=== PATIENT | male | born 1940 | race Caucasian/White ===

== ENCOUNTER 2017-12-18 12:08 | Observation (INO) | payer MEDICARE ==
[~2017-12-18] VITALS: Ht 170.2 cm; Wt 138.9 kg
[~2017-12-18 12:08] MED LIST: ANUSHCS PR; BEE550CA PO; CETI-101 PO; CHOL200013 PO; CYAN25002 SL; DONE10TA36 PO; EZET1TAB21 PO; FURO40TA7 PO; GLYB1TAB3 PO; HYDR-3977 PO; LIRA0.6P SQ; LOSA50TA2 PO; OXYM30SP NS; POTA20TA82 PO; VITA400C73 PO
[2017-12-18] MEDS ORDERED: ASPIRIN 325 MG TABLET ONE (12:41)
[2017-12-18] MEDS ORDERED: NITROGLYCERIN 1GM/1 INCH PACKET TD ONE (12:41)
[2017-12-18] MEDS ORDERED: IPRATROPIUM/ALBUTEROL SULFATE 3 ML SOLUTION IH ONE (12:48)
[2017-12-18 13:06] LABS: BASOPHILS % (AUTO) 1.2 % (0.0-5.0); EOSINOPHILS % (AUTO) 6.7 % (0.0-8.0); LYMPHOCYTES % (AUTO) 24.2 % (21.0-51.0); MEAN CORPUSCULAR HGB CONC 32.8 g/dL (32.0-36.0); MEAN CORPUSCULAR VOLUME 97.6 fL (79-99); MONOCYTES % (AUTO) 13.3 % (3.0-13.0); NEUTROPHILS % (AUTO) 54.6 % (40.0-77.0); PLATELET COUNT (AUTO) 167 K/uL (130-400); RED CELL DISTRIBUTION WIDTH 14.4 % (11.0-15.5); WHITE BLOOD COUNT (AUTO) 5.6 K/uL (4.8-10.8)
[2017-12-18 13:16] LABS: CREATININE 1.7 mg/dL (0.5-1.5); POTASSIUM 5.7 mmol/L (3.5-5.1)
[2017-12-18 13:24] LABS: INR 1.08 (0.85-1.15); PARTIAL THROMBOPLASTIN TIME 23.3 SEC (26.3-35.5); PROTHROMBIN TIME 11.3 SEC (9.6-11.6)
[2017-12-18 13:30] LABS: ALBUMIN 2.8 g/dL (3.5-5.0); BILIRUBIN,TOTAL 0.4 mg/dL (0.2-1.0); CREATINE KINASE MB 2.2 ng/mL (0.5-3.6); TOTAL PROTEIN, SERUM 6.9 g/dL (6.0-8.3)
[2017-12-18 13:31] LABS: B-TYPE NATRIURETIC PEPTIDE 830 pg/mL (0-100)
[2017-12-18] MEDS ORDERED: FUROSEMIDE 10 MG/ML 4ML VIAL ONE (13:53)
[2017-12-18 15:01] LABS: APPEARANCE,URINE Clear (CLEAR); BILIRUBIN,URINE Negative (NEGATIVE); COLOR,URINE Yellow (YELLOW); GLUCOSE, URINE (UA) Negative (NEGATIVE); KETONES,URINE Negative (NEGATIVE); LEUKOCYTE ESTERASE ,URINE Negative (NEGATIVE); NITRATE,URINE Negative (NEGATIVE); OCCULT BLOOD,URINE Negative (NEGATIVE); PROTEIN,URINE POS 1+ (NEGATIVE); UROBILINOGEN,URINE 0.2 mg/dL (0.2-1.0)
[2017-12-18 15:12] LABS: BACTERIA,URINE Rare /HPF (None Seen); HYALINE CASTS, URINE 0-1 /LPF (0-1 /LPF); MUCUS,URINE Few LPF (None Seen); RBC,URINE None Seen /HPF (0-1); SQUAMOUS EPITHELIAL CELL,UR 0-2 /HPF (0-2); TRANSITIONAL EPI CELLS,URINE Rare /HPF (None Seen); WBC,URINE None Seen /HPF (0-1)
[2017-12-18 20:38] VITALS: BP 146/75
[2017-12-18] MEDS ORDERED: POTASSIUM CHLORIDE 20MEQ/100ML 100 ML IV PRN (23:00)
[2017-12-18] MEDS ORDERED: DEXTROSE 50%-WATER 50 ML DISP.SYRIN IV PRN (23:00)
[2017-12-18] MEDS ORDERED: POTASSIUM CHLORIDE 10% ELIXIR 20 MEQ/15 ML UDCUP PO PRN (23:00)
[2017-12-18] MEDS ORDERED: LIDOCAINE HCL-MPF 1% 2ML VIAL IVP PRN (23:00)
[2017-12-18] MEDS ORDERED: METHYLPREDNISOLONE SOD SUCC 125MG/2ML VIAL IVP SCH (23:00)
[2017-12-18] MEDS: FUROSEMIDE 10 MG/ML 4ML VIAL IV SCH (23:00)
[2017-12-18] MEDS ORDERED: IPRATROPIUM/ALBUTEROL SULFATE 3 ML SOLUTION IH PRN (23:00)
[2017-12-18] MEDS ORDERED: POTASSIUM CHLORIDE 20 MEQ ERTAB PO PRN (23:00)
[2017-12-18] MEDS ORDERED: GLUCAGON 1MG KIT 1 MG ML IM PRN (23:00)
[2017-12-18 23:29] VITALS: BP 147/77
[2017-12-19] MEDS: FUROSEMIDE 10 MG/ML 4ML VIAL IV SCH (00:01)
[2017-12-19] MEDS: AZITHROMYCIN 500MG+NS 250ML 250 ML IV SCH ×2 (00:01→23:00)
[2017-12-19 03:49] VITALS: BP 155/80
[2017-12-19 05:48] LABS: HEMATOCRIT 41.3 % (42-54); MEAN CORPUSCULAR HGB CONC 32.7 g/dL (32.0-36.0); MEAN CORPUSCULAR VOLUME 97.7 fL (79-99); NUCLEATED RED BLOOD CELLS 0.1 % (0.0-0.19); PLATELET COUNT (AUTO) 162 K/uL (130-400); RED BLOOD CELL COUNT(AUTO) 4.23 MIL/uL (4.50-6.20); RED CELL DISTRIBUTION WIDTH 14.4 % (11.0-15.5); WHITE BLOOD COUNT (AUTO) 5.2 K/uL (4.8-10.8)
[2017-12-19 05:51] LABS: ALBUMIN 2.9 g/dL (3.5-5.0); BILIRUBIN,TOTAL 0.4 mg/dL (0.2-1.0); CREATININE 1.7 mg/dL (0.5-1.5); POTASSIUM 4.7 mmol/L (3.5-5.1); TOTAL PROTEIN, SERUM 6.6 g/dL (6.0-8.3)
[2017-12-19] MEDS: INSULIN HUMULIN R 100 UNIT/ML 3ML SQ SCH ×4 (06:50→20:42)
[2017-12-19 07:52] VITALS: BP 118/68
[2017-12-19] MEDS ORDERED: FUROSEMIDE 10 MG/ML 4ML VIAL IV SCH (09:00)
[2017-12-19] MEDS ORDERED: PREDNISONE 20 MG TABLET PO SCH (09:00)
[2017-12-19] MEDS ORDERED: CEFTRIAXONE SODIUM 1 GM IV SCH (09:00)
[2017-12-19 11:27] VITALS: BP 128/65
[2017-12-19 15:31] VITALS: BP 147/93
[2017-12-19 20:00] VITALS: BP 137/79
[2017-12-19 23:51] VITALS: BP 128/66
[2017-12-20 04:00] VITALS: BP 145/61
[2017-12-20 05:16] LABS: HEMATOCRIT 41.6 % (42-54); MEAN CORPUSCULAR HEMOGLOBIN 32.4 pg (27.0-33.0); MEAN CORPUSCULAR HGB CONC 33.4 g/dL (32.0-36.0); MEAN CORPUSCULAR VOLUME 97.1 fL (79-99); PLATELET COUNT (AUTO) 189 K/uL (130-400); RED BLOOD CELL COUNT(AUTO) 4.29 MIL/uL (4.50-6.20); RED CELL DISTRIBUTION WIDTH 14.2 % (11.0-15.5); WHITE BLOOD COUNT (AUTO) 7.2 K/uL (4.8-10.8)
[2017-12-20 05:20] LABS: CREATININE 1.8 mg/dL (0.5-1.5)
[2017-12-20] MEDS: INSULIN HUMULIN R 100 UNIT/ML 3ML SQ SCH (05:40)
== END 2017-12-20 08:40 | disposition home or self-care (01) ==
LOC: EDH 12:08 → EDHIP 14:10 → 4CH 20:31
PROVIDERS: ADMIT Internal Medicine; ATTEND Internal Medicine
DX: J44.1 Chronic obstructive pulmonary disease with (acute) exacerbation (principal); I11.0 Hypertensive heart disease with heart failure; I50.32 Chronic diastolic (congestive) heart failure; E78.5 Hyperlipidemia, unspecified; E66.01 Morbid (severe) obesity due to excess calories; E11.65 Type 2 diabetes mellitus with hyperglycemia; J96.90 Respiratory failure, unspecified, unspecified whether with hypoxia or hypercapnia
CPT/HCPCS: 36415 ×3; 71045; 76770; 80048; 80053 ×2; 81001; 82550; 82553; 82948 ×6; 83880; 84484; 85025; 85027 ×2; 85610; 85730; 93005; 94664; 96365; 96366; 96372; 96375; 99285; G0378 ×42; J0456 ×2; J0696; J1815 ×2; J1940 ×3; J2930

== ENCOUNTER 2017-12-30 17:56 | Inpatient (IN) | payer BC, MEDICARE ==
[~2017-12-30] VITALS: Ht 170.2 cm; Wt 133.5 kg
[~2017-12-30 17:56] MED LIST changes: -ANUSHCS PR; -BEE550CA PO; -CETI-101 PO; -CHOL200013 PO; -CYAN25002 SL; -DONE10TA36 PO; +ETOMIDATE 2 MG/ML 10 ML VIAL IVP ONE; -EZET1TAB21 PO; -FURO40TA7 PO; -GLYB1TAB3 PO; -HYDR-3977 PO; -LIRA0.6P SQ; -LOSA50TA2 PO; -OXYM30SP NS; -POTA20TA82 PO; +SUCCINYLCHOLINE CHLORIDE 20 MG/ML 10 ML VIAL IVP ONE; -VITA400C73 PO
[2017-12-30 18:31] LABS: BASOPHILS % (AUTO) 0.9 % (0.0-5.0); EOSINOPHILS % (AUTO) 0.3 % (0.0-8.0); HEMATOCRIT 42.3 % (42-54); LYMPHOCYTES % (AUTO) 14.6 % (21.0-51.0); MEAN CORPUSCULAR HEMOGLOBIN 31.4 pg (27.0-33.0); MEAN CORPUSCULAR HGB CONC 32.8 g/dL (32.0-36.0); MEAN CORPUSCULAR VOLUME 95.7 fL (79-99); MONOCYTES % (AUTO) 11.3 % (3.0-13.0); NEUTROPHILS % (AUTO) 72.9 % (40.0-77.0); NUCLEATED RED BLOOD CELLS 0.1 % (0.0-0.19); PLATELET COUNT (AUTO) 150 K/uL (130-400); RED BLOOD CELL COUNT(AUTO) 4.42 MIL/uL (4.50-6.20); RED CELL DISTRIBUTION WIDTH 14.6 % (11.0-15.5); WHITE BLOOD COUNT (AUTO) 5.4 K/uL (4.8-10.8)
[2017-12-30 18:43] LABS: CREATININE 2.3 mg/dL (0.5-1.5); INR 1.11 (0.85-1.15); PARTIAL THROMBOPLASTIN TIME 22.9 SEC (26.3-35.5); POTASSIUM 4.7 mmol/L (3.5-5.1); PROTHROMBIN TIME 11.6 SEC (9.6-11.6)
[2017-12-30 18:57] LABS: ALBUMIN 3.2 g/dL (3.5-5.0); BILIRUBIN,TOTAL 0.2 mg/dL (0.2-1.0); CREATINE KINASE MB 3.4 ng/mL (0.5-3.6); TOTAL PROTEIN, SERUM 6.9 g/dL (6.0-8.3)
[2017-12-30 19:09] LABS: B-TYPE NATRIURETIC PEPTIDE 1060 pg/mL (0-100)
[2017-12-30] MEDS ORDERED: SODIUM CHLORIDE 0.9% 500ML 500 ML IV ONE (21:29)
[2017-12-30] MEDS ORDERED: FUROSEMIDE 10 MG/ML 4ML VIAL ONE (21:48)
[2017-12-30] MEDS ORDERED: FUROSEMIDE 10 MG/ML 2ML VIAL ONE (21:49)
[2017-12-30 23:45] VITALS: BP 136/79
[2017-12-31 01:57] LABS: CREATINE KINASE MB 3.5 ng/mL (0.5-3.6); TROPONIN I 0.1 ng/mL (0.00-0.06)
[2017-12-31] MEDS ORDERED: ALPRAZOLAM 1 MG TAB PO PRN (02:00)
[2017-12-31] MEDS ORDERED: HYDROCODONE/ACETAMINOPHEN 10/325 MG TAB PO PRN (02:00)
[2017-12-31] MEDS ORDERED: ATOR40TA71 PO (02:11)
[2017-12-31] MEDS ORDERED: POTA20TA82 PO (02:11)
[2017-12-31] MEDS ORDERED: CYAN25002 SL (02:11)
[2017-12-31] MEDS ORDERED: PRED20TA3 PO (02:11)
[2017-12-31] MEDS ORDERED: DONE10TA43 PO (02:11)
[2017-12-31] MEDS ORDERED: HYDR-4068 PO (02:11)
[2017-12-31] MEDS ORDERED: ERGO500014 PO (02:11)
[2017-12-31] MEDS ORDERED: MEMA10TA20 PO (02:11)
[2017-12-31] MEDS ORDERED: DIVA125T2 PO (02:11)
[2017-12-31] MEDS ORDERED: ALPR1TAB7 PO (02:11)
[2017-12-31] MEDS ORDERED: MULT-1192 PO (02:11)
[2017-12-31] MEDS ORDERED: PRIM50TA29 PO (02:11)
[2017-12-31] MEDS ORDERED: LOSA100T29 PO (02:11)
[2017-12-31] MEDS ORDERED: GLYB-228 PO (02:11)
[2017-12-31 03:50] VITALS: BP 112/58
[2017-12-31] MEDS ORDERED: FUROSEMIDE 10 MG/ML 10ML VIAL IVP SCH (07:00)
[2017-12-31 07:07] LABS: CREATINE KINASE MB 3.2 ng/mL (0.5-3.6); TROPONIN I 0.08 ng/mL (0.00-0.06)
[2017-12-31 08:00] VITALS: BP 128/60
[2017-12-31] MEDS ORDERED: GLYBURIDE/METFORMIN HCL 5/500MG TABLET PO SCH (08:00)
[2017-12-31] MEDS: CYANOCOBALAMIN (VITAMIN B-12) 1,000 MCG TABLET PO SCH (10:50)
[2017-12-31] MEDS: POTASSIUM CHLORIDE 20 MEQ ERTAB PO SCH (10:51)
[2017-12-31] MEDS: LOSARTAN 100 MG TABLET PO SCH (10:51)
[2017-12-31] MEDS: ERGOCALCIFEROL (VITAMIN D2) 50,000 UNIT CAPSULE PO SCH (10:51)
[2017-12-31] MEDS: MEMANTINE HCL 5 MG TABLET PO SCH ×2 (10:51→20:35)
[2017-12-31] MEDS: MULTIVITAMIN TABLET PO SCH (10:51)
[2017-12-31] MEDS: DIVALPROEX SODIUM 250 MG TABLET.DR PO SCH ×2 (10:51→20:35)
[2017-12-31] MEDS: PRIMIDONE 50 MG TAB PO SCH ×2 (10:54→16:59)
[2017-12-31] MEDS: PREDNISONE 20 MG TABLET PO SCH (10:54)
[2017-12-31 12:00] VITALS: BP 159/70
[2017-12-31 15:44] VITALS: BP 161/87
[2017-12-31 19:15] VITALS: BP 121/67
[2017-12-31] MEDS: DONEPEZIL HCL 5 MG TAB PO SCH (20:35)
[2017-12-31] MEDS: ATORVASTATIN CALCIUM 40 MG TABLET PO SCH (20:35)
[2017-12-31 23:07] VITALS: BP 148/67
[2018-01-01] VITALS (17 sets, daily range): BP systolic 112–190; BP diastolic 58–105
[2018-01-01 06:18] LABS: HEMATOCRIT 40.6 % (42-54); MEAN CORPUSCULAR HEMOGLOBIN 31.9 pg (27.0-33.0); MEAN CORPUSCULAR HGB CONC 32.6 g/dL (32.0-36.0); MEAN CORPUSCULAR VOLUME 97.8 fL (79-99); NUCLEATED RED BLOOD CELLS 0.1 % (0.0-0.19); PLATELET COUNT (AUTO) 129 K/uL (130-400); RED BLOOD CELL COUNT(AUTO) 4.15 MIL/uL (4.50-6.20); RED CELL DISTRIBUTION WIDTH 15.1 % (11.0-15.5); WHITE BLOOD COUNT (AUTO) 7.4 K/uL (4.8-10.8)
[2018-01-01 06:26] LABS: APPEARANCE,URINE Clear (CLEAR); BILIRUBIN,URINE Negative (NEGATIVE); COLOR,URINE Yellow (YELLOW); GLUCOSE, URINE (UA) Negative (NEGATIVE); KETONES,URINE Negative (NEGATIVE); LEUKOCYTE ESTERASE ,URINE Negative (NEGATIVE); NITRATE,URINE Negative (NEGATIVE); OCCULT BLOOD,URINE Negative (NEGATIVE); PROTEIN,URINE POS 2+ (NEGATIVE); UROBILINOGEN,URINE 0.2 mg/dL (0.2-1.0)
[2018-01-01 06:32] LABS: BACTERIA,URINE Rare /HPF (None Seen); RBC,URINE 0-1 /HPF (0-1); SQUAMOUS EPITHELIAL CELL,UR Rare /HPF (0-2)
[2018-01-01 06:33] LABS: ALBUMIN 3.1 g/dL (3.5-5.0); BILIRUBIN,TOTAL 0.3 mg/dL (0.2-1.0); CREATININE 2.1 mg/dL (0.5-1.5); MAGNESIUM 2.2 mg/dL (1.80-2.40); PHOSPHORUS 5.8 mg/dL (2.5-4.9); POTASSIUM 4.1 mmol/L (3.5-5.1); TOTAL PROTEIN, SERUM 6.7 g/dL (6.0-8.3); URIC ACID 9.7 mg/dL (2.6-7.2)
[2018-01-01] MEDS: FOLIC ACID/VITAMIN B COMP W-C 1 MG CAPSULE PO SCH (12:39)
[2018-01-01] MEDS: MEMANTINE HCL 5 MG TABLET PO SCH ×2 (12:40→21:00)
[2018-01-01] MEDS: LOSARTAN 100 MG TABLET PO SCH (12:40)
[2018-01-01] MEDS: POTASSIUM CHLORIDE 20 MEQ ERTAB PO SCH (12:40)
[2018-01-01] MEDS: PREDNISONE 20 MG TABLET PO SCH (12:40)
[2018-01-01] MEDS: CYANOCOBALAMIN (VITAMIN B-12) 1,000 MCG TABLET PO SCH (12:41)
[2018-01-01] MEDS: DIVALPROEX SODIUM 250 MG TABLET.DR PO SCH ×2 (12:41→21:00)
[2018-01-01] MEDS: PRIMIDONE 50 MG TAB PO SCH ×2 (12:41→16:20)
[2018-01-01] MEDS: MULTIVITAMIN TABLET PO SCH (12:42)
[2018-01-01 14:41] LABS: ABG BASE EXCESS 1.2 mmol/L (-2.0-3.0); ABG HCO3 33.5 mmol/L (21.0-28.0); ABG PCO2 98 mmHg (35-48)
[2018-01-01 16:52] LABS: ABG HCO3 39.7 mmol/L (21.0-28.0); ABG PCO2 130 mmHg (35-48)
[2018-01-01] MEDS ORDERED: NOREPINEPHRINE 4MG/NS 250ML 250 ML IV SCH (17:30)
[2018-01-01] MEDS: IPRATROPIUM/ALBUTEROL SULFATE 3 ML SOLUTION IH SCH ×2 (18:00→23:12)
[2018-01-01] MEDS ORDERED: PROPOFOL 1000 MG/100 ML 100 ML IV ONE (18:09)
[2018-01-01 18:57] LABS: ABG BASE EXCESS 2.5 mmol/L (-2.0-3.0); ABG HCO3 28.6 mmol/L (21.0-28.0); ABG OXYGEN SATURATION 94.9 % (95.0-99.0); ABG PCO2 50 mmHg (35-48)
[2018-01-01] MEDS: DOXYCYCLINE 100MG+NS 250ML 250 ML IV SCH (19:51)
[2018-01-01] MEDS ORDERED: SODIUM CHLORIDE 0.9% 500ML 500 ML IV SCH (21:00)
[2018-01-01] MEDS ORDERED: SODIUM CHLORIDE 0.9% 1000ML 1,000 ML IV ONE (21:06)
[2018-01-01] MEDS ORDERED: SODIUM CHLORIDE 0.9% 500ML 500 ML IV ONE (21:06)
[2018-01-01] MEDS: SODIUM CHLORIDE 0.9% 1000ML 1,000 ML IV SCH (22:17)
[2018-01-01] MEDS: ATORVASTATIN CALCIUM 40 MG TABLET PO SCH (22:48)
[2018-01-01] MEDS: METHYLPREDNISOLONE SOD SUCC 40MG/ML 1ML IVP SCH (22:48)
[2018-01-01] MEDS: FAMOTIDINE/PF 20 MG/2 ML VIAL IV SCH (22:48)
[2018-01-01] MEDS: DONEPEZIL HCL 5 MG TAB PO SCH (22:48)
[2018-01-02] VITALS (24 sets, daily range): BP systolic 135–181; BP diastolic 64–102
[2018-01-02 03:58] LABS: BASOPHILS % (AUTO) 0.4 % (0.0-5.0); HEMATOCRIT 37.9 % (42-54); LYMPHOCYTES % (AUTO) 7.3 % (21.0-51.0); MEAN CORPUSCULAR HEMOGLOBIN 31.7 pg (27.0-33.0); MEAN CORPUSCULAR HGB CONC 33.1 g/dL (32.0-36.0); MEAN CORPUSCULAR VOLUME 95.9 fL (79-99); MONOCYTES % (AUTO) 8.4 % (3.0-13.0); NEUTROPHILS % (AUTO) 83.9 % (40.0-77.0); PLATELET COUNT (AUTO) 90 K/uL (130-400); RED BLOOD CELL COUNT(AUTO) 3.95 MIL/uL (4.50-6.20); RED CELL DISTRIBUTION WIDTH 14.6 % (11.0-15.5); WHITE BLOOD COUNT (AUTO) 6.8 K/uL (4.8-10.8)
[2018-01-02 04:20] LABS: CREATININE 1.9 mg/dL (0.5-1.5); POTASSIUM 4.1 mmol/L (3.5-5.1)
[2018-01-02] MEDS: METHYLPREDNISOLONE SOD SUCC 40MG/ML 1ML IVP SCH ×4 (04:59→21:00)
[2018-01-02] MEDS: IPRATROPIUM/ALBUTEROL SULFATE 3 ML SOLUTION IH SCH ×4 (06:00→23:22)
[2018-01-02] MEDS: DOXYCYCLINE 100MG+NS 250ML 250 ML IV SCH ×2 (08:39→18:11)
[2018-01-02] MEDS: FAMOTIDINE/PF 20 MG/2 ML VIAL IV SCH (08:40)
[2018-01-02] MEDS: CYANOCOBALAMIN (VITAMIN B-12) 1,000 MCG TABLET PO SCH (08:41)
[2018-01-02] MEDS: MULTIVITAMIN TABLET PO SCH (08:41)
[2018-01-02] MEDS: FOLIC ACID/VITAMIN B COMP W-C 1 MG CAPSULE PO SCH (08:41)
[2018-01-02] MEDS: DIVALPROEX SODIUM 250 MG TABLET.DR PO SCH ×2 (08:41→21:11)
[2018-01-02] MEDS: PRIMIDONE 50 MG TAB PO SCH ×2 (08:41→15:50)
[2018-01-02] MEDS: MEMANTINE HCL 5 MG TABLET PO SCH ×2 (08:41→21:10)
[2018-01-02] MEDS: PREDNISONE 20 MG TABLET PO SCH (08:41)
[2018-01-02] MEDS: PROPOFOL 1000 MG/100 ML IV PRN ×5 (08:45→18:11)
[2018-01-02 09:29] LABS: ABG BASE EXCESS 7.7 mmol/L (-2.0-3.0); ABG HCO3 30.8 mmol/L (21.0-28.0); ABG OXYGEN SATURATION 97.7 % (95.0-99.0); ABG PCO2 38 mmHg (35-48)
[2018-01-02] MEDS: SODIUM CHLORIDE 0.9% 1000ML 1,000 ML IV SCH (11:26)
[2018-01-02] MEDS: FUROSEMIDE 10 MG/ML 10ML VIAL IVP SCH ×2 (13:27→21:11)
[2018-01-02] MEDS: DONEPEZIL HCL 5 MG TAB PO SCH (21:11)
[2018-01-02] MEDS: ATORVASTATIN CALCIUM 40 MG TABLET PO SCH (21:11)
[2018-01-02] MEDS ORDERED: AMLODIPINE BESYLATE 5 MG TAB PO ONE (21:45)
[2018-01-03] VITALS (26 sets, daily range): BP systolic 81–174; BP diastolic 41–101
[2018-01-03] MEDS: METHYLPREDNISOLONE SOD SUCC 40MG/ML 1ML IVP SCH ×3 (03:16→20:20)
[2018-01-03 04:59] LABS: HEMATOCRIT 38.3 % (42-54); MEAN CORPUSCULAR HGB CONC 32.9 g/dL (32.0-36.0); MEAN CORPUSCULAR VOLUME 94.3 fL (79-99); PLATELET COUNT (AUTO) 119 K/uL (130-400); RED BLOOD CELL COUNT(AUTO) 4.07 MIL/uL (4.50-6.20); RED CELL DISTRIBUTION WIDTH 14.2 % (11.0-15.5); WHITE BLOOD COUNT (AUTO) 8.3 K/uL (4.8-10.8)
[2018-01-03 05:17] LABS: ALBUMIN 2.4 g/dL (3.5-5.0); B-TYPE NATRIURETIC PEPTIDE 1050 pg/mL (0-100); BILIRUBIN,TOTAL 0.4 mg/dL (0.2-1.0); CREATININE 1.8 mg/dL (0.5-1.5); MAGNESIUM 1.9 mg/dL (1.80-2.40); PHOSPHORUS 3.7 mg/dL (2.5-4.9); POTASSIUM 3.4 mmol/L (3.5-5.1); TOTAL PROTEIN, SERUM 5.5 g/dL (6.0-8.3)
[2018-01-03] MEDS: DOXYCYCLINE 100MG+NS 250ML 250 ML IV SCH ×2 (06:20→19:39)
[2018-01-03] MEDS: IPRATROPIUM/ALBUTEROL SULFATE 3 ML SOLUTION IH SCH ×3 (06:58→18:48)
[2018-01-03] MEDS: PROPOFOL 1000 MG/100 ML IV PRN ×6 (07:59→23:30)
[2018-01-03] MEDS: PREDNISONE 20 MG TABLET PO SCH (08:00)
[2018-01-03] MEDS: MULTIVITAMIN TABLET PO SCH (08:38)
[2018-01-03] MEDS: PRIMIDONE 50 MG TAB PO SCH ×2 (08:38→16:23)
[2018-01-03] MEDS: FAMOTIDINE/PF 20 MG/2 ML VIAL IV SCH (08:38)
[2018-01-03] MEDS: FUROSEMIDE 10 MG/ML 10ML VIAL IVP SCH (08:38)
[2018-01-03] MEDS: MEMANTINE HCL 5 MG TABLET PO SCH ×2 (08:38→20:20)
[2018-01-03] MEDS: FOLIC ACID/VITAMIN B COMP W-C 1 MG CAPSULE PO SCH (08:38)
[2018-01-03] MEDS: CYANOCOBALAMIN (VITAMIN B-12) 1,000 MCG TABLET PO SCH (08:38)
[2018-01-03] MEDS: DIVALPROEX SODIUM 250 MG TABLET.DR PO SCH ×2 (08:39→20:21)
[2018-01-03 09:25] LABS: ABG BASE EXCESS 8.6 mmol/L (-2.0-3.0); ABG HCO3 34.3 mmol/L (21.0-28.0); ABG OXYGEN SATURATION 98.3 % (95.0-99.0); ABG PCO2 51 mmHg (35-48)
[2018-01-03] MEDS: AMLODIPINE BESYLATE 5 MG TAB PO SCH (11:57)
[2018-01-03] MEDS: DONEPEZIL HCL 5 MG TAB PO SCH (20:20)
[2018-01-03] MEDS: ATORVASTATIN CALCIUM 40 MG TABLET PO SCH (20:20)
[2018-01-04] VITALS (26 sets, daily range): BP systolic 88–160; BP diastolic 49–92
[2018-01-04] MEDS: IPRATROPIUM/ALBUTEROL SULFATE 3 ML SOLUTION IH SCH ×5 (00:33→23:31)
[2018-01-04] MEDS: PROPOFOL 1000 MG/100 ML IV PRN ×5 (03:19→20:21)
[2018-01-04 04:08] LABS: HEMATOCRIT 37.2 % (42-54); MEAN CORPUSCULAR HGB CONC 34.1 g/dL (32.0-36.0); MEAN CORPUSCULAR VOLUME 94.1 fL (79-99); PLATELET COUNT (AUTO) 110 K/uL (130-400); RED BLOOD CELL COUNT(AUTO) 3.95 MIL/uL (4.50-6.20); RED CELL DISTRIBUTION WIDTH 14.9 % (11.0-15.5); WHITE BLOOD COUNT (AUTO) 7.7 K/uL (4.8-10.8)
[2018-01-04 04:14] LABS: CREATININE 1.5 mg/dL (0.5-1.5); PHOSPHORUS 4.5 mg/dL (2.5-4.9); POTASSIUM 4.4 mmol/L (3.5-5.1)
[2018-01-04 05:59] LABS: ABG HCO3 33.5 mmol/L (21.0-28.0); ABG OXYGEN SATURATION 96.3 % (95.0-99.0); ABG PCO2 49 mmHg (35-48)
[2018-01-04] MEDS: MEMANTINE HCL 5 MG TABLET PO SCH ×2 (09:00→20:14)
[2018-01-04] MEDS: DOXYCYCLINE 100MG+NS 250ML 250 ML IV SCH ×2 (09:02→20:14)
[2018-01-04] MEDS: MULTIVITAMIN TABLET PO SCH (09:03)
[2018-01-04] MEDS: FAMOTIDINE/PF 20 MG/2 ML VIAL IV SCH (09:03)
[2018-01-04] MEDS: PREDNISONE 20 MG TABLET PO SCH (09:03)
[2018-01-04] MEDS: CYANOCOBALAMIN (VITAMIN B-12) 1,000 MCG TABLET PO SCH (09:03)
[2018-01-04] MEDS: DIVALPROEX SODIUM 250 MG TABLET.DR PO SCH ×2 (09:03→20:15)
[2018-01-04] MEDS: METHYLPREDNISOLONE SOD SUCC 40MG/ML 1ML IVP SCH ×2 (09:03→20:14)
[2018-01-04] MEDS: FOLIC ACID/VITAMIN B COMP W-C 1 MG CAPSULE PO SCH (09:03)
[2018-01-04] MEDS: PRIMIDONE 50 MG TAB PO SCH ×2 (09:04→17:23)
[2018-01-04] MEDS: AMLODIPINE BESYLATE 5 MG TAB PO SCH (09:04)
[2018-01-04 10:50] LABS: ABG BASE EXCESS 6.1 mmol/L (-2.0-3.0); ABG HCO3 31.2 mmol/L (21.0-28.0); ABG PCO2 46 mmHg (35-48)
[2018-01-04] MEDS ORDERED: FUROSEMIDE 10 MG/ML 4ML VIAL IV SCH (12:30)
[2018-01-04] MEDS: FUROSEMIDE 40 MG TABLET PO SCH (17:00)
[2018-01-04] MEDS: ATORVASTATIN CALCIUM 40 MG TABLET PO SCH (20:14)
[2018-01-04] MEDS: DONEPEZIL HCL 5 MG TAB PO SCH (20:15)
[2018-01-05] VITALS (24 sets, daily range): BP systolic 103–166; BP diastolic 47–92
[2018-01-05] MEDS: PROPOFOL 1000 MG/100 ML IV PRN (01:06)
[2018-01-05 04:17] LABS: RED BLOOD CELL COUNT(AUTO) 4.01 MIL/uL (4.50-6.20); WHITE BLOOD COUNT (AUTO) 7.1 K/uL (4.8-10.8)
[2018-01-05 04:18] LABS: HEMATOCRIT 37.7 % (42-54); MEAN CORPUSCULAR HEMOGLOBIN 30.7 pg (27.0-33.0); MEAN CORPUSCULAR HGB CONC 32.6 g/dL (32.0-36.0); PLATELET COUNT (AUTO) 92 K/uL (130-400); RED CELL DISTRIBUTION WIDTH 14.6 % (11.0-15.5)
[2018-01-05 04:30] LABS: CREATININE 1.3 mg/dL (0.5-1.5); MAGNESIUM 2.1 mg/dL (1.80-2.40); PHOSPHORUS 3.8 mg/dL (2.5-4.9)
[2018-01-05 05:10] LABS: ABG BASE EXCESS 10.8 mmol/L (-2.0-3.0); ABG HCO3 37.5 mmol/L (21.0-28.0); ABG OXYGEN SATURATION 96.3 % (95.0-99.0); ABG PCO2 58 mmHg (35-48)
[2018-01-05] MEDS: IPRATROPIUM/ALBUTEROL SULFATE 3 ML SOLUTION IH SCH ×3 (06:17→18:48)
[2018-01-05] MEDS ORDERED: MAGNESIUM 2GM PREMIX 50ML 50 ML IV SCH (07:30)
[2018-01-05] MEDS: DOXYCYCLINE 100MG+NS 250ML 250 ML IV SCH ×2 (08:16→20:04)
[2018-01-05] MEDS: CYANOCOBALAMIN (VITAMIN B-12) 1,000 MCG TABLET PO SCH (08:21)
[2018-01-05] MEDS: METHYLPREDNISOLONE SOD SUCC 40MG/ML 1ML IVP SCH ×2 (08:21→20:04)
[2018-01-05] MEDS: FUROSEMIDE 40 MG TABLET PO SCH ×2 (08:21→17:00)
[2018-01-05] MEDS: AMLODIPINE BESYLATE 5 MG TAB PO SCH (08:21)
[2018-01-05] MEDS: DIVALPROEX SODIUM 250 MG TABLET.DR PO SCH ×2 (08:22→20:16)
[2018-01-05] MEDS: FOLIC ACID/VITAMIN B COMP W-C 1 MG CAPSULE PO SCH (08:22)
[2018-01-05] MEDS: FAMOTIDINE/PF 20 MG/2 ML VIAL IV SCH (08:22)
[2018-01-05] MEDS: PREDNISONE 20 MG TABLET PO SCH (08:23)
[2018-01-05] MEDS: MULTIVITAMIN TABLET PO SCH (08:23)
[2018-01-05] MEDS: MEMANTINE HCL 5 MG TABLET PO SCH ×2 (08:24→20:16)
[2018-01-05] MEDS: PRIMIDONE 50 MG TAB PO SCH ×2 (08:24→16:30)
[2018-01-05 10:24] LABS: ABG BASE EXCESS 6.6 mmol/L (-2.0-3.0); ABG OXYGEN SATURATION 94.8 % (95.0-99.0); ABG PCO2 54 mmHg (35-48)
[2018-01-05] MEDS ORDERED: LABETALOL HCL 5 MG/ML 20ML VIAL IV PRN (17:15)
[2018-01-05] MEDS: ATORVASTATIN CALCIUM 40 MG TABLET PO SCH (20:16)
[2018-01-05] MEDS: DONEPEZIL HCL 5 MG TAB PO SCH (20:16)
[2018-01-06] VITALS (25 sets, daily range): BP systolic 125–169; BP diastolic 59–93
[2018-01-06 03:29] LABS: CREATININE 1.1 mg/dL (0.5-1.5); MAGNESIUM 2.2 mg/dL (1.80-2.40); PHOSPHORUS 3.1 mg/dL (2.5-4.9); POTASSIUM 4.1 mmol/L (3.5-5.1)
[2018-01-06 03:30] LABS: BASOPHILS % (AUTO) 0.5 % (0.0-5.0); HEMATOCRIT 41.6 % (42-54); LYMPHOCYTES % (AUTO) 11.6 % (21.0-51.0); MEAN CORPUSCULAR HEMOGLOBIN 31.2 pg (27.0-33.0); MEAN CORPUSCULAR HGB CONC 32.9 g/dL (32.0-36.0); MEAN CORPUSCULAR VOLUME 94.8 fL (79-99); MONOCYTES % (AUTO) 10.5 % (3.0-13.0); NEUTROPHILS % (AUTO) 76.4 % (40.0-77.0); PLATELET COUNT (AUTO) 113 K/uL (130-400); RED BLOOD CELL COUNT(AUTO) 4.39 MIL/uL (4.50-6.20); RED CELL DISTRIBUTION WIDTH 14.8 % (11.0-15.5); WHITE BLOOD COUNT (AUTO) 7.4 K/uL (4.8-10.8)
[2018-01-06 03:48] LABS: B-TYPE NATRIURETIC PEPTIDE 642 pg/mL (0-100)
[2018-01-06] MEDS: IPRATROPIUM/ALBUTEROL SULFATE 3 ML SOLUTION IH SCH ×4 (06:05→18:31)
[2018-01-06 07:28] LABS: ABG BASE EXCESS -0.1 mmol/L (-2.0-3.0); ABG HCO3 25.7 mmol/L (21.0-28.0); ABG OXYGEN SATURATION 97.7 % (95.0-99.0); ABG PCO2 46 mmHg (35-48)
[2018-01-06] MEDS: PRIMIDONE 50 MG TAB PO SCH ×2 (07:30→16:30)
[2018-01-06] MEDS: PREDNISONE 20 MG TABLET PO SCH (08:00)
[2018-01-06] MEDS: MEMANTINE HCL 5 MG TABLET PO SCH ×3 (08:34→19:28)
[2018-01-06] MEDS: AMLODIPINE BESYLATE 5 MG TAB PO SCH ×2 (08:34→11:55)
[2018-01-06] MEDS: MULTIVITAMIN TABLET PO SCH (08:34)
[2018-01-06] MEDS: FOLIC ACID/VITAMIN B COMP W-C 1 MG CAPSULE PO SCH ×2 (08:34→11:55)
[2018-01-06] MEDS: CYANOCOBALAMIN (VITAMIN B-12) 1,000 MCG TABLET PO SCH (08:34)
[2018-01-06] MEDS: DIVALPROEX SODIUM 250 MG TABLET.DR PO SCH ×3 (08:35→19:28)
[2018-01-06] MEDS: FUROSEMIDE 40 MG TABLET PO SCH (08:35)
[2018-01-06] MEDS ORDERED: FUROSEMIDE 10 MG/ML 4ML VIAL ONE (08:38)
[2018-01-06] MEDS: FAMOTIDINE/PF 20 MG/2 ML VIAL IV SCH (08:40)
[2018-01-06] MEDS: DOXYCYCLINE 100MG+NS 250ML 250 ML IV SCH ×2 (08:40→20:39)
[2018-01-06] MEDS: METHYLPREDNISOLONE SOD SUCC 40MG/ML 1ML IVP SCH ×2 (08:40→20:40)
[2018-01-06] MEDS ORDERED: FUROSEMIDE 10 MG/ML 4ML VIAL IV SCH ×2 (08:45→13:00)
[2018-01-06] MEDS ORDERED: HEPARIN SODIUM 5000UNIT/ML 1ML VIAL SQ SCH (13:00)
[2018-01-06] MEDS: DONEPEZIL HCL 5 MG TAB PO SCH (19:27)
[2018-01-06] MEDS: ATORVASTATIN CALCIUM 40 MG TABLET PO SCH (19:28)
[2018-01-06] MEDS: FUROSEMIDE 10 MG/ML 4ML VIAL IV SCH (20:40)
[2018-01-06] MEDS: HEPARIN SODIUM 5000UNIT/ML 1ML VIAL SQ SCH (20:41)
[2018-01-07] VITALS (12 sets, daily range): BP systolic 109–162; BP diastolic 50–102
[2018-01-07] MEDS: IPRATROPIUM/ALBUTEROL SULFATE 3 ML SOLUTION IH SCH ×5 (00:35→23:05)
[2018-01-07] MEDS: PRIMIDONE 50 MG TAB PO SCH ×2 (07:30→17:00)
[2018-01-07] MEDS: DOXYCYCLINE 100MG+NS 250ML 250 ML IV SCH ×2 (07:38→20:31)
[2018-01-07 07:55] LABS: HEMATOCRIT 43.8 % (42-54); MEAN CORPUSCULAR HEMOGLOBIN 30.3 pg (27.0-33.0); MEAN CORPUSCULAR HGB CONC 32.1 g/dL (32.0-36.0); MEAN CORPUSCULAR VOLUME 94.5 fL (79-99); PLATELET COUNT (AUTO) 119 K/uL (130-400); RED BLOOD CELL COUNT(AUTO) 4.64 MIL/uL (4.50-6.20); RED CELL DISTRIBUTION WIDTH 14.4 % (11.0-15.5); WHITE BLOOD COUNT (AUTO) 8.7 K/uL (4.8-10.8)
[2018-01-07] MEDS: PREDNISONE 20 MG TABLET PO SCH (08:00)
[2018-01-07 08:07] LABS: CREATININE 1.1 mg/dL (0.5-1.5); MAGNESIUM 2.2 mg/dL (1.80-2.40); POTASSIUM 3.9 mmol/L (3.5-5.1)
[2018-01-07] MEDS: FOLIC ACID/VITAMIN B COMP W-C 1 MG CAPSULE PO SCH (08:19)
[2018-01-07] MEDS: ASPIRIN 81MG TAB.CHEW PO SCH (08:20)
[2018-01-07] MEDS: METHYLPREDNISOLONE SOD SUCC 40MG/ML 1ML IVP SCH (08:20)
[2018-01-07] MEDS: CYANOCOBALAMIN (VITAMIN B-12) 1,000 MCG TABLET PO SCH (08:20)
[2018-01-07] MEDS: DIVALPROEX SODIUM 250 MG TABLET.DR PO SCH ×2 (08:20→20:32)
[2018-01-07] MEDS: MEMANTINE HCL 5 MG TABLET PO SCH ×2 (08:20→20:31)
[2018-01-07] MEDS: MULTIVITAMIN TABLET PO SCH (08:20)
[2018-01-07] MEDS: FAMOTIDINE/PF 20 MG/2 ML VIAL IV SCH (08:21)
[2018-01-07] MEDS: FUROSEMIDE 10 MG/ML 4ML VIAL IV SCH ×2 (08:21→20:32)
[2018-01-07] MEDS: AMLODIPINE BESYLATE 5 MG TAB PO SCH (08:21)
[2018-01-07] MEDS: HEPARIN SODIUM 5000UNIT/ML 1ML VIAL SQ SCH ×2 (08:22→20:38)
[2018-01-07] MEDS: ERGOCALCIFEROL (VITAMIN D2) 50,000 UNIT CAPSULE PO SCH (19:27)
[2018-01-07] MEDS: ATORVASTATIN CALCIUM 40 MG TABLET PO SCH (20:31)
[2018-01-07] MEDS: DONEPEZIL HCL 5 MG TAB PO SCH (20:31)
[2018-01-07] MEDS: FAMOTIDINE 20MG TAB 20 MG TAB PO SCH (20:32)
[2018-01-08 03:52] VITALS: BP 135/66
[2018-01-08 03:54] LABS: HEMATOCRIT 39.9 % (42-54); MEAN CORPUSCULAR HEMOGLOBIN 31.1 pg (27.0-33.0); MEAN CORPUSCULAR HGB CONC 32.9 g/dL (32.0-36.0); MEAN CORPUSCULAR VOLUME 94.6 fL (79-99); PLATELET COUNT (AUTO) 129 K/uL (130-400); RED BLOOD CELL COUNT(AUTO) 4.22 MIL/uL (4.50-6.20); RED CELL DISTRIBUTION WIDTH 14.6 % (11.0-15.5); WHITE BLOOD COUNT (AUTO) 6.8 K/uL (4.8-10.8)
[2018-01-08 04:07] LABS: CREATININE 1.1 mg/dL (0.5-1.5); POTASSIUM 3.6 mmol/L (3.5-5.1)
[2018-01-08] MEDS: IPRATROPIUM/ALBUTEROL SULFATE 3 ML SOLUTION IH SCH ×4 (05:37→23:34)
[2018-01-08 07:00] VITALS: BP 122/68
[2018-01-08] MEDS: FAMOTIDINE 20MG TAB 20 MG TAB PO SCH ×2 (09:20→21:14)
[2018-01-08] MEDS: ASPIRIN 81MG TAB.CHEW PO SCH (09:20)
[2018-01-08] MEDS: MEMANTINE HCL 5 MG TABLET PO SCH ×2 (09:21→21:14)
[2018-01-08] MEDS: MULTIVITAMIN TABLET PO SCH (09:21)
[2018-01-08] MEDS: DIVALPROEX SODIUM 250 MG TABLET.DR PO SCH ×2 (09:21→21:14)
[2018-01-08] MEDS: PREDNISONE 20 MG TABLET PO SCH (09:21)
[2018-01-08] MEDS: PRIMIDONE 50 MG TAB PO SCH ×2 (09:21→16:30)
[2018-01-08] MEDS: AMLODIPINE BESYLATE 5 MG TAB PO SCH (09:21)
[2018-01-08] MEDS: FOLIC ACID/VITAMIN B COMP W-C 1 MG CAPSULE PO SCH (09:21)
[2018-01-08] MEDS: CYANOCOBALAMIN (VITAMIN B-12) 1,000 MCG TABLET PO SCH (09:22)
[2018-01-08] MEDS: FUROSEMIDE 10 MG/ML 4ML VIAL IV SCH ×2 (09:24→21:15)
[2018-01-08] MEDS: DOXYCYCLINE 100MG+NS 250ML 250 ML IV SCH (10:27)
[2018-01-08] MEDS: HEPARIN SODIUM 5000UNIT/ML 1ML VIAL SQ SCH ×2 (10:28→21:17)
[2018-01-08 11:00] VITALS: BP 137/71
[2018-01-08 16:00] VITALS: BP 123/63
[2018-01-08 19:28] VITALS: BP 113/55
[2018-01-08] MEDS: ATORVASTATIN CALCIUM 40 MG TABLET PO SCH (21:14)
[2018-01-08] MEDS: DOXYCYCLINE HYCLATE 100 MG TABLET PO SCH (21:14)
[2018-01-08] MEDS: DONEPEZIL HCL 5 MG TAB PO SCH (21:14)
[2018-01-08] MEDS ORDERED: SIMETHICONE 80 MG TAB.CHEW ONE (23:11)
[2018-01-08] MEDS ORDERED: SIMETHICONE 80 MG TAB.CHEW PO PRN (23:15)
[2018-01-08 23:44] VITALS: BP 137/76
[2018-01-09 04:31] VITALS: BP 116/64
[2018-01-09] MEDS: IPRATROPIUM/ALBUTEROL SULFATE 3 ML SOLUTION IH SCH ×4 (05:56→23:20)
[2018-01-09 07:00] VITALS: BP 115/57
[2018-01-09] MEDS: MEMANTINE HCL 5 MG TABLET PO SCH ×2 (08:38→22:02)
[2018-01-09] MEDS: FAMOTIDINE 20MG TAB 20 MG TAB PO SCH ×2 (08:40→22:02)
[2018-01-09] MEDS: PRIMIDONE 50 MG TAB PO SCH ×2 (08:40→16:42)
[2018-01-09] MEDS: DOXYCYCLINE HYCLATE 100 MG TABLET PO SCH ×2 (08:40→22:02)
[2018-01-09] MEDS: ASPIRIN 81MG TAB.CHEW PO SCH (08:40)
[2018-01-09] MEDS: PREDNISONE 20 MG TABLET PO SCH (08:40)
[2018-01-09] MEDS: MULTIVITAMIN TABLET PO SCH (08:40)
[2018-01-09] MEDS: AMLODIPINE BESYLATE 5 MG TAB PO SCH (08:41)
[2018-01-09] MEDS: CYANOCOBALAMIN (VITAMIN B-12) 1,000 MCG TABLET PO SCH (08:41)
[2018-01-09] MEDS: DIVALPROEX SODIUM 250 MG TABLET.DR PO SCH ×2 (08:41→22:02)
[2018-01-09] MEDS: FUROSEMIDE 10 MG/ML 4ML VIAL IV SCH ×2 (08:43→22:01)
[2018-01-09] MEDS: FOLIC ACID/VITAMIN B COMP W-C 1 MG CAPSULE PO SCH (08:44)
[2018-01-09] MEDS: HEPARIN SODIUM 5000UNIT/ML 1ML VIAL SQ SCH ×2 (08:59→22:02)
[2018-01-09 11:00] VITALS: BP 134/78
[2018-01-09 16:00] VITALS: BP 125/58
[2018-01-09 20:00] VITALS: BP 140/87
[2018-01-09] MEDS: ATORVASTATIN CALCIUM 40 MG TABLET PO SCH (22:02)
[2018-01-09] MEDS: DONEPEZIL HCL 5 MG TAB PO SCH (22:02)
[2018-01-10 00:33] VITALS: BP 154/80
[2018-01-10 03:57] LABS: HEMATOCRIT 40.3 % (42-54); MEAN CORPUSCULAR HEMOGLOBIN 31.3 pg (27.0-33.0); MEAN CORPUSCULAR HGB CONC 33.2 g/dL (32.0-36.0); MEAN CORPUSCULAR VOLUME 94.3 fL (79-99); PLATELET COUNT (AUTO) 151 K/uL (130-400); RED BLOOD CELL COUNT(AUTO) 4.27 MIL/uL (4.50-6.20); RED CELL DISTRIBUTION WIDTH 14.5 % (11.0-15.5); WHITE BLOOD COUNT (AUTO) 6.5 K/uL (4.8-10.8)
[2018-01-10 04:00] VITALS: BP 147/87
[2018-01-10 04:07] LABS: CREATININE 1.2 mg/dL (0.5-1.5); POTASSIUM 3.2 mmol/L (3.5-5.1)
[2018-01-10] MEDS: ACETAMINOPHEN 325 MG TAB PO PRN ×4 (05:39→22:23)
[2018-01-10] MEDS: IPRATROPIUM/ALBUTEROL SULFATE 3 ML SOLUTION IH SCH ×3 (06:02→18:34)
[2018-01-10] MEDS: AMLODIPINE BESYLATE 5 MG TAB PO SCH (09:13)
[2018-01-10] MEDS: FOLIC ACID/VITAMIN B COMP W-C 1 MG CAPSULE PO SCH (09:13)
[2018-01-10] MEDS: PREDNISONE 20 MG TABLET PO SCH (09:13)
[2018-01-10] MEDS: DIVALPROEX SODIUM 250 MG TABLET.DR PO SCH ×2 (09:13→20:41)
[2018-01-10] MEDS: DOXYCYCLINE HYCLATE 100 MG TABLET PO SCH ×2 (09:13→20:41)
[2018-01-10] MEDS: CYANOCOBALAMIN (VITAMIN B-12) 1,000 MCG TABLET PO SCH (09:13)
[2018-01-10] MEDS: MULTIVITAMIN TABLET PO SCH (09:13)
[2018-01-10] MEDS: MEMANTINE HCL 5 MG TABLET PO SCH ×2 (09:13→20:42)
[2018-01-10] MEDS: FAMOTIDINE 20MG TAB 20 MG TAB PO SCH ×2 (09:13→20:41)
[2018-01-10] MEDS: ASPIRIN 81MG TAB.CHEW PO SCH (09:13)
[2018-01-10] MEDS: PRIMIDONE 50 MG TAB PO SCH ×2 (09:13→16:57)
[2018-01-10] MEDS: HEPARIN SODIUM 5000UNIT/ML 1ML VIAL SQ SCH ×2 (09:18→20:35)
[2018-01-10] MEDS: FUROSEMIDE 10 MG/ML 4ML VIAL IV SCH (09:21)
[2018-01-10] MEDS ORDERED: FUROSEMIDE 20 MG TABLET PO SCH ×2 (11:30→23:30)
[2018-01-10] MEDS ORDERED: POTASSIUM CHLORIDE 10% ELIXIR 20 MEQ/15 ML UDCUP PO PRN (11:30)
[2018-01-10] MEDS ORDERED: POTASSIUM CHLORIDE 20MEQ/100ML 100 ML IV PRN (11:30)
[2018-01-10] MEDS ORDERED: LIDOCAINE HCL-MPF 1% 2ML VIAL IVP PRN (11:30)
[2018-01-10 11:47] VITALS: BP 127/57
[2018-01-10] MEDS: POTASSIUM CHLORIDE 20 MEQ ERTAB PO PRN ×2 (12:16→14:58)
[2018-01-10] MEDS: NYSTATIN 15 GM POWDER TP SCH ×2 (14:51→21:32)
[2018-01-10 15:50] VITALS: BP 127/72
[2018-01-10] MEDS: ATORVASTATIN CALCIUM 40 MG TABLET PO SCH (20:41)
[2018-01-10] MEDS: DONEPEZIL HCL 5 MG TAB PO SCH (20:42)
== END 2018-01-10 22:50 | DRG 208 ==
LOC: EDH 17:56 → EDHIP 22:00 → OBSVTOIN 22:00 → 3AH 22:43 → 2BH 01-01 15:37 → 2AH 01-07 13:19
PROVIDERS: ADMIT Internal Medicine; ATTEND Internal Medicine
PROC: 5A1945Z Respiratory Ventilation, 24-96 Consecutive Hours (ICD-10-PCS; principal; 2018-01-01)
PROC: 0BH17EZ Insertion of Endotracheal Airway into Trachea, Via Natural or Artificial Opening (ICD-10-PCS; 2018-01-01)
PROC: 02HV33Z Insertion of Infusion Device into Superior Vena Cava, Percutaneous Approach (ICD-10-PCS; 2018-01-01)
PROC: B548ZZA Ultrasonography of Superior Vena Cava, Guidance (ICD-10-PCS; 2018-01-01)
PROC: 5A09457 Assistance with Respiratory Ventilation, 24-96 Consecutive Hours, Continuous Positive Airway Pressure (ICD-10-PCS; 2018-01-05)
DX: J96.21 Acute and chronic respiratory failure with hypoxia (principal); I50.33 Acute on chronic diastolic (congestive) heart failure; G93.40 Encephalopathy, unspecified; J18.9 Pneumonia, unspecified organism; E46 Unspecified protein-calorie malnutrition; N17.9 Acute kidney failure, unspecified; E11.21 Type 2 diabetes mellitus with diabetic nephropathy; E11.51 Type 2 diabetes mellitus with diabetic peripheral angiopathy without gangrene; E87.2 Acidosis; I13.0 Hypertensive heart and chronic kidney disease with heart failure and stage 1 through stage 4 chronic kidney disease, or unspecified chronic kidney disease; J44.0 Chronic obstructive pulmonary disease with (acute) lower respiratory infection; E66.2 Morbid (severe) obesity with alveolar hypoventilation; I42.9 Cardiomyopathy, unspecified; J44.1 Chronic obstructive pulmonary disease with (acute) exacerbation; Z68.42 Body mass index [BMI] 45.0-49.9, adult; D64.9 Anemia, unspecified; J96.22 Acute and chronic respiratory failure with hypercapnia; E11.22 Type 2 diabetes mellitus with diabetic chronic kidney disease; E78.5 Hyperlipidemia, unspecified; E87.6 Hypokalemia; N18.3 Chronic kidney disease, stage 3 (moderate); R56.9 Unspecified convulsions; Z96.659 Presence of unspecified artificial knee joint; Z74.01 Bed confinement status; Z91.19 Patient's noncompliance with other medical treatment and regimen; Z91.81 History of falling; Z99.2 Dependence on renal dialysis; Z88.8 Allergy status to other drugs, medicaments and biological substances
CPT/HCPCS: 31500; 36415; 36600; 71045; 71250; 76700; 76770; 80048; 80053; 81001; 82550; 82553; 82803; 82948; 83735; 83874; 83880; 84100; 84484; 84550; 85025; 85027; 85610; 85730; 92610; 93005; 93306; 94002; 94003; 94150; 94640; 94660; 94664; 94667; 94668; 97039; A4344; A6234; C1751; J0330; J1644; J1940; J2704; J2920; J3475; J3490; J7030; J7040